=== PATIENT | male | born 1950 | race Caucasian/White ===

== ENCOUNTER 2019-12-25 16:40 | Emergency (ER) | payer BC, MEDICARE ==
[2019-12-25 17:13] LABS: ABS Basophils 0.1 10^3/ul (0-0.2); ABS Eosinophils 0.1 10^3/ul (0-0.6); ABS Lymphocytes 3.2 10^3/ul (1.0-4.8); ABS Monocytes 0.4 10^3/ul (0-0.8); ABS Neutrophils 2.9 10^3/ul (1.5-7.7); Eosinophil % 1.8 %; Hematocrit 40 % (42-52); Hemoglobin 13.6 g/dL (14.0-18.0); Lymphocyte % 47.3 %; Mean Corpuscular HGB Conc 34 g/dL (31-36); Mean Corpuscular Hemoglobin 32 pg (27-31); Mean Corpuscular Volume 94 fL (80-94); Mean Platelet Volume 7.7 fL (7.4-10.4); Nucleated Red Blood Cells % 0.1; Platelet Count 305 10^3/uL (150-450); Red Blood Count 4.25 10^6 /uL (4.18-5.48); Red Cell Distribution Width 14 % (10-15); White Blood Count 6.8 10^3/uL (3.5-10.8)
[2019-12-25 17:18] LABS: INR 0.99 (0.82-1.09)
[2019-12-25 17:38] LABS: Calcium 9.1 mg/dL (8.6-10.3); Total Bilirubin 0.3 mg/dL (0.2-1.0)
[2019-12-25 17:44] LABS: Albumin/Globulin Ratio 1.5 (1-3); BUN/Creatinine Ratio 20.4 (8-20); EGFR African American 96.9 (>60); EGFR Non-African American 80.1 (>60); Globulin 2.7 g/dL (2-4); Total Protein 6.7 g/dL (6.4-8.9)
--- NOTE | 2019-12-25 19:50 | ED ---
Dizziness - HPI Summary HPI Summary: The patient is a 69-year-old male presenting to [facility] with a chief complaint of an isolated episode of diffuse myalgias, dizziness, and diaphoresis for a total of 30 minutes this morning around 0500. He reports that he woke up with pain all over his body as if he was hit with a sledgehammer. He then developed vertigo-like dizziness that worsened with head movement. He became diaphoretic for approximately 20 minutes before it relieved. He did take 81mg Aspirin at that time. He had a mild chest discomfort which did not seem severe or too much to handle. He denies any SOB or nausea. He has noticed palpitations primarily with drinking a beer or when lying down at night, causing him to be uncomfortable until he can fall asleep. He occasionally experiences his heart flipping with the palpitations. He did not experience these symptoms today. Symptoms are currently rated 0/10 in severity as everything has resolved, and he is feeling much better. He states that he has been dealing with prolonged cold symptoms intermittently since September, but doesnt feel particularly ill at this time other than a cough which is not acute. No previous cardiac history , although there is cardiac history in the family. Past medical history significant for melanoma with removal, shingles. Nonsmoker, weekly EtOH, no substance use. Medications reviewed. Allergies noted. - History Of Current Complaint Chief Complaint: EDDizziness Stated Complaint: CHEST PAIN PER PT Time Seen by Provider: 12/25/19 19:23 Hx Obtained From: Patient Onset/Duration: Resolved, Suddenly Timing: Intermittent Episode Lasting - 1 episode lasting for 30 minutes total Severity Initially: Severe Severity Currently: None Character: Dizzy Aggravating Factor(s): Change In Head Position Alleviating Factor(s): Rest Associated Signs And Symptoms: Positive: Diaphoresis, Other: - chest discomfort , myalgias. Negative: Nausea, Chest Pain, SOB, Palpitations - Allergies/Home Medications Allergies/Adverse Reactions: Allergies Allergy/AdvReac Type Severity Reaction Status Date / Time No Known Allergies Allergy Verified 02/13/18 11:51 PMH/Surg Hx/FS Hx/Imm Hx Endocrine/Hematology History: Denies: Hx Anticoagulant Therapy Cardiovascular History: Denies: Hx Auto Implanted Cardiovert Defib, Hx Hypertension Respiratory History: Denies: Hx Chronic Obstructive Pulmonary Disease (COPD) Sensory History: Denies: Hx Legally Blind, Hx Deafness Opthamlomology History: Denies: Hx Legally Blind EENT History: Denies: Hx Deafness - Surgical History Surgical History: Yes Surgery Procedure, Year, and Place: melanoma removal - Immunization History Immunizations Up to Date: No Infectious Disease History: No Infectious Disease History: Reports: Hx Shingles - 5 years ago Denies: Traveled Outside the [place] in Last 30 Days - Family History Known Family History: Positive: Cardiac Disease, Hypertension - Social History Alcohol Use: Weekly Hx Substance Use: No Substance Use Type: Reports: None Hx Tobacco Use: No Smoking Status (MU): Never Smoked Tobacco - Additional Comments History Additional Comments: melanoma on chest with removal, shingles, no cardiac history Review of Systems - ROS Summary Review of Systems Summary: Home Medications Medication Instructions Recorded Confirmed Type NK [No Home Medications Reported] 02/13/18 12/25/19 History Positive: Skin Diaphoresis Positive: Other - chest discomfort. Negative: Palpitations, Chest Pain Negative: Shortness Of Breath Negative: Nausea Positive: Myalgia - diffuse Neurological/Mental Status: Other - dizziness All Other Systems Reviewed And Are Negative: Yes Physical Exam - Summary Physical Exam Summary: General: Well-developed, Well-nourished male. No acute distress. HEENT: Normocephalic, Atraumatic. Eyes: Conjuctiva normal, PERRL. Oropharynx: Clear, mucous membranes moist, (-) exudates. Neck: Soft, FROM, (-) lymphadenopathy, (-) thyromegaly, (-) JVD. Cardiovascular: Normal sinus rhythm, (-) murmur. Lungs: Clear to auscultation bilaterally (-) wheezes, (-) rales, (-) rhonchi. Abdomen: Soft, non-tender, non-distended, (-) organomegaly, normal bowel sounds. Back: (-) CVA tenderness Extremities: No edema. Skin: Warm, dry, (-) rash. Neuro: Alert and oriented x3, moves all extremities equally. No ataxia. No gait disturbance. No sensory deficit. Normal strength, normal sensation. Psychiatric: Mood normal, affect normal. Triage Information Reviewed: Yes Vital Signs On Initial Exam: Initial Vitals Temp Pulse Resp BP Pulse Ox 98.1 F 69 18 148/85 100 12/25/19 16:46 12/25/19 16:46 02/18/20 16:46 12/25/19 16:46 12/25/19 16:46 Vital Signs Reviewed: Yes Procedures - Sedation Patient Received Moderate/Deep Sedation with Procedure: No Diagnostics - Vital Signs Vital Signs Temp Pulse Resp BP Pulse Ox 12/25/19 19:33 57 15 124/72 98 12/25/19 19:05 58 99 12/25/19 19:03 62 138/83 99 12/25/19 16:46 98.1 F 69 18 148/85 100 - Laboratory Lab Results: Lab Results 12/25/19 12/25/19 12/25/19 Range/Units 16:58 16:58 16:58 WBC 6.8 (3.5-10.8) 10^3/uL RBC 4.25 (4.18-5.48) 10^6 /uL Hgb 13.6 L (14.0-18.0) g/dL Hct 40 L (42-52) % MCV 94 (80-94) fL MCH 32 H (27-31) pg MCHC 34 (31-36) g/dL RDW 14 (10-15) % Plt Count 305 (150-450) 10^3/uL MPV 7.7 (7.4-10.4) fL Neut % (Auto) 43.4 % Lymph % (Auto) 47.3 % Harper % (Auto) 6.6 % Eos % (Auto) 1.8 % Baso % (Auto) 0.9 % Absolute Neuts (auto) 2.9 (1.5-7.7) 10^3/ul Absolute Lymphs (auto) 3.2 (1.0-4.8) 10^3/ul Absolute Monos (auto) 0.4 (0-0.8) 10^3/ul Absolute Eos (auto) 0.1 (0-0.6) 10^3/ul Absolute Basos (auto) 0.1 (0-0.2) 10^3/ul Absolute Nucleated RBC 0.0 10^3/ul Nucleated RBC % 0.1 INR (Anticoag Therapy) 0.99 (0.82-1.09) Sodium 138 (135-145) mmol/L Potassium 4.0 (3.5-5.0) mmol/L Chloride 105 (101-111) mmol/L Carbon Dioxide 27 (22-32) mmol/L Anion Gap 6 (2-11) mmol/L BUN 19 (6-24) mg/dL Creatinine 0.93 (0.67-1.17) mg/dL Est GFR ( Amer) 96.9 (>60) Est GFR (Non-Af Amer) 80.1 (>60) BUN/Creatinine Ratio 20.4 H (8-20) Glucose 96 (70-100) mg/dL Calcium 9.1 (8.6-10.3) mg/dL Total Bilirubin 0.30 (0.2-1.0) mg/dL AST 18 (13-39) U/L ALT 24 (7-52) U/L Alkaline Phosphatase 47 (34-104) U/L Troponin I 0.00 (<0.03) ng/mL Total Protein 6.7 (6.4-8.9) g/dL Albumin 4.0 (3.2-5.2) g/dL Globulin 2.7 (2-4) g/dL Albumin/Globulin Ratio 1.5 (1-3) Result Diagrams: 12/25/19 16:58 12/25/19 16:58 Lab Statement: Any lab studies that have been ordered have been reviewed, and results considered in the medical decision making process. - Radiology CXR Radiology Interpretation Completed By: ED Physician Summary of Radiographic Findings: No infiltrate. No pleural effusion. This imaging study was reviewed and interpreted by Dr. Braden. Pending official read. - EKG 1641 Cardiac Rate: NL - 66 BPM EKG Rhythm: Sinus Rhythm Summary of EKG Findings: EKG at 1641 reveals normal sinus rhythm with rate of 66 BPM, no acute changes, no ischemic changes. This EKG was reviewed and interpreted by Dr. Braden. Re-Evaluation - Re-Evaluation First Eval Re-Evaluation Time: 20:55 Comment: I have discussed results with the patient, and he is feeling well. Discussed symptoms that warrant immediate return to ED. Dizzy Course/Dx - Course Course Of Treatment: 69-year-old male presents with a 20 minute history of dizziness and myalgias this morning. He said he had some tightness in the chest no pain. No shortness of breath. He states now he feels tired but otherwise okay. He does note multiple URIs this winter. 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 has not had any fevers. No productive cough. No vomiting or diarrhea. No urinary changes. No significant findings on physical exam.workup demonstrates no EKG changes. Negative troponin 2. Patient discharged home. Advised plenty of rest and fluids. Follow-up with PCP. Discussed stress test with PCP. Follow-up sooner for any worsening symptoms. - Diagnoses Provider Diagnoses: Vertigo Discharge ED - Sign-Out/Discharge Documenting (check all that apply): Patient Departure - Patient will be discharged home. - Discharge Plan Condition: Stable Disposition: HOME Patient Education Materials: Vertigo (DC) Referrals: [facility] [Outside] - 3 Days Additional Instructions: We have referred you to a primary care provider service that can find a provider for you. You should follow up with a primary care provider within the next 3 days so that you can schedule a stress test. Return to the emergency department for any new or worsening symptoms. - Billing Disposition and Condition Condition: STABLE Disposition: Home - Attestation Statements Document Initiated by Marguerite: Yes Documenting Scribe: Aileen Nolen Provider For Whom Marguerite is Documenting (Include Credential): Dr. Sheila Braden MD Scribe Attestation: I, Aileen Nolen scribed for Dr. Sheila Braden MD on 12/26/19 at [id number]. Scribe Documentation Reviewed: Yes Provider Attestation: The documentation as recorded by the Aileen connors accurately reflects the service I personally performed and the decisions made by me, Dr. Sheila Braden MD Status of Scribrosalie Document: Viewed
[2019-12-25 21:07] VITALS: BP 132/87
== END 2019-12-25 20:54 | disposition home or self-care (01) ==
LOC: ED 16:40
DX: R42 Dizziness and giddiness (principal); R61 Generalized hyperhidrosis; M79.10 Myalgia, unspecified site; R07.89 Other chest pain; R05 Cough
CPT/HCPCS: 36415; 71046; 80053; 84484; 85025; 85610; 93005; 99284